=== PATIENT | male | born 1965 | race Caucasian/White ===

== ENCOUNTER → 2021-08-28 | Outpatient (CLI) | payer OTHER, SELFPAY ==
--- NOTE | 2021-08-28 | CALC_PTH ---
PATIENT: JUAN GRACIA LOC: [facility] U#:[id number] AGE/SX: 55/M ROOM: RE08/28/[address]: Dr. Bernardo Lopez MD : 1965 BED: DIS: 08/28/2021 SPEC #: [id number] RECD: 08/28/21 15:06 STATUS: SHIRA RESeth #: [id number] BERNIE: 08/28/21 00:[address]: Bernardo Lopez DEPT: SURGICAL PATHOLOGY RECD BY: Franco Chahal ENTERED: 08/29/21 09:32 SP TYPE: Calculi OTHR DR: BRENNAN Tissues: CALCULI Procedures: Surgery Specimen Level I HEADER OPERATION: Right ureteroscopy, laser stone PRE-OP DIAGNOSIS: Right calculus TISSUE SUBMITTED: Right ureteral calculi GROSS DIAGNOSIS A fragment of stone, clinically right ureteral calculus. ROMEL:hugo 08/29/2021 COMMENT If chemical analysis is requested on this specimen, please notify the laboratory. GROSS DESCRIPTION Received without fixative labeled with the patient's name and designated right ureteral calculi. The specimen consists of a fragment of xui-xavdpixx-lylmu stone measuring 0.4 x 0.2 x 0.1 cm. The entire specimen is saved if stone analysis is requested. / ROMEL:hugo 08/29/2021 CPT: 42449
== END | disposition home or self-care (01) ==
LOC: LABSPEC 15:26
PROVIDERS: Referring Provider Urology; Visit Provider Urology
DX: N20.1 Calculus of ureter (principal)
CPT/HCPCS: 88300